=== PATIENT | female | born 1945 | race Caucasian/White ===

== ENCOUNTER → 2018-08-31 | Outpatient (CLI) | payer MEDICARE, OTHER ==
[2018-08-31] VITALS (13 sets, daily range): BP systolic 42–151; BP diastolic 12–72
--- NOTE | ~2018-08-31 | CARD ---
[address] [address] CARDIAC CATH REPORT Name: TEMO SHELLEY Room: [facility]#: [id number] Admission: 08/31/18 Attend Phys: Elbert Moe MD, Discharge: Date of : 49 Report #: [id number] THIS REPORT FOR: //name// CC: Kostas Moe DATE OF SERVICE: 08/31/2018 HEAD-UP TILT TABLE TEST. ORDERING PHYSICIAN: Dr. Elbert Moe MD, [facility] INDICATION: Syncope. CONSENT: The risks and benefits of the procedure described to the patient in lay terms. The patient elects to proceed. Underlying resting blood pressure, heart rate was 143/72 with a heart rate of 62 in a sinus rhythm. Tilt table was initiated at 60 degrees and the blood pressure was 123/64 with a heart rate of 66. At 2-minute intervals, heart rate and blood pressure were monitored. Before even nitroglycerin was initiated after approximately 16 minutes, the patient's blood pressure dropped to a systolic of 42/12 with a pulse of 50. She was immediately returned to the upright position as the patient became syncopal. After the patient was placed in the supine position, blood pressure increased to 151/63 with a heart rate of 58. Underlying rhythm was sinus. There were no cardiac pauses or tachyarrhythmias. IMPRESSION: Positive head-up tilt table test for vasovagal syncope. The patient's heart rate and blood pressure decreased. By: [id number] Brown MD, FACC /nt
--- NOTE | 2018-08-31 15:36 | NUR ---
PATIENT HERE FOR TILT TABLE. ALL VITAL SIGNS WERE STABLE AND ONE MINUTE FROM THE TIME TO GIVE THE NITRO, PATIENT HR AND BLOOD PRESSURE DROPPED. SHE BECAME SWEATY AND PALE. PATIENT PASSED OUT AND HEART RATE NEVER RECOVERED TO THE BASELINE OF 70'S. SHE WAS CONSISTENTLY IN THE 50'S. PATIENT SEEN BY DR. REDI AND TOLD THAT POSSIBLY NEEDS TO HAVE A PACEMAKER INSERTED.
== END | disposition home or self-care (01) ==
LOC: M.CL 08:59
DX: R55 Syncope and collapse (principal)

== ENCOUNTER → 2020-01-11 | Outpatient (CLI) | payer MEDICARE, OTHER | LOC: M.RAD 11:20 | PROVIDERS: ATTEND Internal Medicine | DX: M81.0 Age-related osteoporosis without current pathological fracture (principal); M85.80 Other specified disorders of bone density and structure, unspecified site ==

== ENCOUNTER → 2020-09-02 | Outpatient (CLI) | payer MEDICARE, OTHER | LOC: M.RAD 15:43 | PROVIDERS: ATTEND Internal Medicine | DX: J45.41 Moderate persistent asthma with (acute) exacerbation (principal); R06.02 Shortness of breath; J84.9 Interstitial pulmonary disease, unspecified ==